=== PATIENT | female | born 1995 | race Caucasian/White ===

== ENCOUNTER 2024-08-15 15:10 | Observation (INO) ==
[2024-08-15 16:46] LABS: Basophils # (auto) 0.07 K/uL (0.00-0.20); Basophils % (auto) 0.8 %; Eosinophils % (auto) 1.1 %; Hematocrit (blood only) 37.7 % (37.0-47.0); Hemoglobin 12.5 g/dl (12.0-16.0); Immature Granulocytes # (auto) 0.02 K/uL (0.01-0.20); Immature Granulocytes % (auto) 0.2 %; Lymphocytes # (auto) 1.96 K/uL (1.20-3.40); Lymphocytes % (auto) 22.5 %; Mean Corpuscular Hemoglobin 30.4 pg (25.0-34.0); Mean Corpuscular Hgb Conc 33.2 g/dL (32.0-36.0); Mean Corpuscular Volume 91.7 fL (80.0-100.0); Mean Platelet Volume 10.5 fL (9.4-12.4); Monocytes # (auto) 0.56 K/uL (0.11-0.59); Monocytes % (auto) 6.4 %; Neutrophils # (auto) 5.99 K/uL (1.40-6.50); Platelet Count 240 K/uL (130-400); RDW Coefficient of Variation 12.3 % (11.5-14.5); RDW Standard Deviation 41.3 fL (36.4-46.3); Red Blood Count 4.11 M/uL (4.20-5.40)
[2024-08-15 17:04] LABS: Albumin Globulin Ratio 1.5 (0.9-2); BUN Creatinine Ratio 28.8 (10-20); Bilirubin,Total 0.2 mg/dl (0.2-1.0); Calcium 9.7 mg/dl (8.6-10.3); Creatinine Clr Calc Pharmacy 69.7 ml/min; Globulin 2.8 gm/dl (2.5-4.0); Potassium 3.7 mmol/L (3.5-5.1); Total Protein 7.1 gm/dl (6.0-8.3)
--- NOTE | 2024-08-15 17:38 | Emergency Department Note ---
Impression & Plan UTI (urinary tract infection) ED Provider Note CHIEF COMPLAINT: UTI symptoms HISTORY OF PRESENTING ILLNESS: Patient is a 28-year-old female presents to the emergency department today with her mother for evaluation of pain pain and UTI symptoms. The patient does have a history of cerebral palsy. She is she is nonverbal, nonambulatory, blindness, and hearing impaired. The patient was seen a few weeks ago here for a UTI and started on Keflex. Once the culture returned mother felt that she was not improving and brought her back to the emergency department the same day. She was then given a dose of ertapenem 1000 mg IV and sent home with Macrobid. She did complete the course and did have improvement but then started to get worse again. Mother reports that she appears to be in pain when straightening out her legs but it is difficult to understand where the pain is coming from due to the nonverbal status. No reported fevers, nausea, vomiting. She does have a history of sepsis back in December from a UTI source. REVIEW OF SYSTEMS: See HPI for pertinent positives and pertinent negatives. ALLERGIES: No known allergies MEDICATIONS: See below PAST MEDICAL HISTORY: See below PHYSICAL EXAM: VITALS: Vitals are noted on the nurse's note and reviewed by myself. GENERAL: Non toxic, in no acute distress, non-diaphoretic. Is very antsy and yelling which mother and grandmother report is not normal for her. SKIN: Capillary refill <2 sec. NECK: Supple without increased pain on palpation HEART: Regular rate and rhythm without murmurs gallops or rubs. LUNGS: Clear to auscultation bilaterally without wheezes, rales or rhonchi. No retractions or accessory muscle use. ABDOMEN: Positive bowel sounds x 4. Normal tympanic percussion. Soft, nontender to palpation. No masses or hepatosplenomegaly. No focal RLQ or LLQ tenderness. Note: Is difficult to assess due to nonverbal status. MUSCULOSKELETAL: Difficult to assess, contractures are noted, patient is stiff, and nonambulatory. NEURO: Patient was alert. Neurologic exam is difficult due to the cerebral palsy history. DIFFERENTIAL DIAGNOSIS: Differential diagnosis includes appendicitis, diverticulitis, bowel obstruction, inflammatory bowel disease, renal colic, PUD, biliary pathology, pancreatitis, mesenteric ischemia, aortic pathology, infection, genitourinary, UTI, perforated viscus, among others. ED COURSE AND MEDICAL DECISION MAKING: HISTORY FROM INDEPENDENT HISTORIAN: History was provided by the the patient's mother and grandmother. MONITOR: Continuous cardiac monitor technician: Order was placed for continuous cardiac monitor technician. Patient was placed on the cardiac monitor technician and continuous pulse ox. Patient was noted to be in normal sinus rhythm at an initial rate of 94 bpm per my interpretation. INTERPRETATION OF LABS: I interpreted the labs with full lab results as below in the lab section of this note. Laboratory results pertinent to the emergent complaint are discussed in the MDM section below. The patient was advised to follow up with their PCP and/or specialist(s) for further outpatient monitoring and management of any abnormal results. EXTERNAL RECORDS REVIEWED: Patient's previous hospital stay and emergency records CHRONIC MEDICAL/SOCIAL CONDITIONS AFFECTING CARE: Cerebral palsy, nonverbal, nonambulatory, blind, and hearing impaired. ESCALATION OF CARE CONSIDERED: I considered admission on this patient due to failure of p.o. antibiotics. CONSULTATIONS: I had a meaningful discussion about this patient with Dr. Gambino who agrees with my assessment and the treatment plan. I consulted with the pharmacist who is recommending IV antibiotics with either Zosyn or for concern for ESBL a carbapenem would be best. I then consulted with Dr. Huntley who accepts the patient for admission. SUMMARY: I examined the patient for complaints of abdominal pain. A physical exam and history were performed. Nursing notes, EMR, and medication list were personally reviewed. Due to the patient being nonverbal mother provided most of the history. Patient was difficult to assess due to the cerebral palsy and the nonverbal status. I discussed the CT scan of the abdomen and pelvis with the mother who originally agreed. When she was straight cathed for urine the patient's mother was certain that it was UTI and then refused the CT scan. She was educated on the benefits and the risks of the CT scan. The patients lab work did show no leukocytosis, thrombocytopnea, or anemia. Sodium level was 147 and chloride 114. Urinalysis did show trace amount of leukocytes with white blood cells present. Due to the failure of outpatient antibiotics, and the history of sepsis with UTI source I did consult with Dr. Huntley who accepts the patient for admission. I also spoke with the pharmacist who is recommending IV antibiotics of either Zosyn for the broad coverage or carbapenem if her concern for the ESBL still present. I did relay this information to Dr. Huntley. I then spoke with the patient's mother and updated her on the plan of care. She had no further questions or concerns. The patient was admitted to the hospitalist services at this time. The patient is to have close outpatient follow-up with a recheck of their symptoms. To return to the ER sooner for any significantly changing or worsening symptoms. The patient was educated on the treatment plan and the discharge instructions. The patient was discharged home in stable condition and verbalized understanding of all discharge instructions and treatment plan. DIAGNOSIS: Urinary tract infection TREATMENT PLAN/DISCHARGE INSTRUCTIONS: Admit to hospitalist services. Past Med/Surg History Problem List (Updated 08/16/24 @ 06:10 by Jermain Grace MD) Urinary tract infection due to extended-spectrum beta lactamase (ESBL) producing Escherichia coli Muscle spasticity UTI (urinary tract infection) (Acute) Medical History HTN (hypertension) Hyperlipemia Epilepsy Quadriplegia Cerebral palsy Blindness No pertinent family history Surgical History No pertinent past surgical history Family History Other No pertinent family history Social History Smoking Status: Never smoker Do You Dip or Chew Tobacco: No; Tobacco Cessation Education Requested by Patient: No Hx Alcohol Use: No Hx Substance Use: No Preferred Language: Iraqi Communication Ability: Unable Communication Ability Comment: pt nonverbal Visual Impairment: Blindness Pullman Conductor Required: No Beliefs That Will Affect Care: None Current Living Situation: Parent current occupational status: disabled Other Information That Helps Us Care for You: No Feels Safe at Home: Yes Assistive Devices: Wheelchair Allergies Allergies Allergy/AdvReac Type Severity Reaction Status Date / Time No Known Allergies Allergy Unknown Unverified 09/27/18 13:26 Home Meds Home Medications Medication Instructions Recorded Confirmed citalopram 40 mg tablet 40 mg PO HS 09/27/18 08/15/24 lamotrigine 25 mg chewable 50 mg PO BID 09/27/18 08/15/24 dispersible tablet melatonin 5 mg tablet 5 mg PO HS 09/27/18 08/15/24 polyethylene glycol 3350 17 17 g PO QAM 09/27/18 08/15/24 gram/dose oral powder simvastatin 10 mg tablet 10 mg PO QAM 09/27/18 08/15/24 albuterol sulfate 90 mcg/actuation 2 inh inhalation Q6H PRN sob 05/18/24 08/15/24 breath activated powder inhaler cholecalciferol (vitamin D3) 1,250 50,000 unit PO WK 05/18/24 08/15/24 mcg (50,000 unit) capsule quetiapine 200 mg tablet 200 mg PO BID 05/26/24 08/15/24 Results & Data (ED) Vital Signs Vital Signs - 24 hr 08/15/24 15:19 08/15/24 16:05 08/15/24 17:11 Temperature 36.2 C L Temperature Source Temporal Artery Scan Pulse Rate 98 H 99 H Pulse Rate [Left] 93 H Respiratory Rate 20 20 20 Blood Pressure 106/68 Blood Pressure [Left Arm] 89/71 L Blood Pressure Mean 80 Blood Pressure Mean [Left Arm] 77 Pulse Oximetry 100 98 95 Oxygen Delivery Method Room Air Room Air Sepsis Recent Fever Within 48 Hours No Sepsis New/Unexplained Change in Mental Status N/A Sepsis Action Taken by Nursing No Action Required 08/15/24 17:19 08/15/24 19:00 Temperature Temperature Source Pulse Rate 102 H Pulse Rate [Left] 103 H Respiratory Rate 20 Blood Pressure Blood Pressure [Left Arm] 116/92 Blood Pressure Mean Blood Pressure Mean [Left Arm] 100 Pulse Oximetry 94 Oxygen Delivery Method Room Air Sepsis Recent Fever Within 48 Hours Sepsis New/Unexplained Change in Mental Status Sepsis Action Taken by Nursing Laboratory Data 08/15/24 16:23 08/15/24 16:23 Lab Results 08/15/24 08/15/24 Range/Units 16:23 18:03 WBC 8.70 (4.8-10.8) K/ul RBC 4.11 L (4.20-5.40) M/uL Hgb 12.5 (12.0-16.0) g/dl Hct 37.7 (37.0-47.0) % MCV 91.7 (80.0-100.0) fL MCH 30.4 (25.0-34.0) pg MCHC 33.2 (32.0-36.0) g/dL RDW Std Deviation 41.3 (36.4-46.3) fL RDW Coeff of Jeri 12.3 (11.5-14.5) % Plt Count 240 (130-400) K/uL MPV 10.5 (9.4-12.4) fL Immature Gran % (Auto) 0.2 % Neut % (Auto) 69.0 % Lymph % (Auto) 22.5 % [place] % (Auto) 6.4 % Eos % (Auto) 1.1 % Baso % (Auto) 0.8 % Neut # (Auto) 5.99 (1.40-6.50) K/uL Lymph # (Auto) 1.96 (1.20-3.40) K/uL [place] # (Auto) 0.56 (0.11-0.59) K/uL Eos # (Auto) 0.10 (0.00-0.50) K/uL Baso # (Auto) 0.07 (0.00-0.20) K/uL Immature Gran # (Auto) 0.02 (0.01-0.20) K/uL Sodium 147 H (136-145) mmol/L Potassium 3.7 (3.5-5.1) mmol/L Chloride 114 H (98-107) mmol/L Carbon Dioxide 26 (21-32) mmol/L Anion Gap 7 (3-11) BUN 21 (6-23) mg/dl Creatinine 0.73 (0.6-1.2) mg/dl Est Cr Clr Drug Dosing 69.7 ml/min eGFR 116.24 BUN/Creatinine Ratio 28.8 H (10-20) Glucose 93 (70-99(Fasting)) mg/dl Calcium 9.7 (8.6-10.3) mg/dl Total Bilirubin 0.2 (0.2-1.0) mg/dl AST 17 (13-39) U/L ALT 31 (7-52) U/L Alkaline Phosphatase 76 (34-104) U/L Total Protein 7.1 (6.0-8.3) gm/dl Albumin 4.3 (3.4-5.0) gm/dl Globulin 2.8 (2.5-4.0) gm/dl Albumin/Globulin Ratio 1.5 (0.9-2) Lipase 26 (11-82) U/L Urine Color Yellow Urine Appearance Turbid A (Clear) Urine pH 6.0 (4.5-7.5) Ur Specific [place] >= 1.030 (1.000-1.030) Urine Protein 3+ H (Negative) Urine Glucose (UA) Negative (Negative) Urine Ketones Negative (Negative) Urine Blood Trace-intact H (Negative) Urine Nitrite Negative (Negative) Urine Bilirubin Negative (Negative) Urine Urobilinogen Negative (Negative) Ur Leukocyte Esterase Trace H (Negative) Urine RBC 3-5 H (0-2) /hpf Urine WBC 11-20 H (0-5) /hpf Ur Epithelial Cells >20 H (0-2) /hpf Calcium Oxalate Crystal Present A (None Prsent) Amorphous Sediment Present A (None Prsent) Urine Bacteria 4+ H (None Seen) Urine Mucus Present A (None Prsent) Urine Comment Administered Medications Citalopram Hydrobromide (Citalopram 40 Mg Tab) 40 mg PO HS PENDING SALE TO [facility] Stop: 09/14/24 21:35 Last Admin: 08/15/24 22:26 Dose: 40 mg Documented By: [id number] Heparin Sodium (Porcine) (Heparin Sod 5,000 Unit/0.5 Ml Vial) 5,000 units SQ Q12 JORDAN Stop: 09/14/24 21:35 Last Admin: 08/15/24 22:22 Dose: 5,000 units Documented By: [id number] Ertapenem (Invanz 1000mg) 1,000 mg in 10 mls @ 2 mls/min IV Q24H JORDAN Stop: 08/25/24 21:59 Last Admin: 08/15/24 22:23 Dose: 2 mls/min Documented By: [id number] Lamotrigine (Lamotrigine 25 Mg Tab) 50 mg PO BID JORDAN Stop: 09/14/24 21:35 Last Admin: 08/15/24 22:25 Dose: 50 mg Documented By: [id number] Melatonin (Melatonin 3 Mg Tab) 4.5 mg PO HS PENDING SALE TO [facility] Stop: 09/14/24 21:35 Last Admin: 08/15/24 22:26 Dose: 4.5 mg Documented By: [id number] Quetiapine Fumarate (Quetiapine Fumarate 200 Mg Tab) 400 mg PO PM JORDAN Stop: 09/14/24 22:29 Last Admin: 08/15/24 22:24 Dose: 400 mg Documented By: [id number] Discontinued Medications Dextrose/Sodium Chloride (D5w And 1/2nss) 1,000 mls @ 80 mls/hr IV .[id number] JORDAN Stop: 08/16/24 10:05 Last Admin: 08/15/24 22:26 Dose: 80 mls/hr Documented By: [id number] Lorazepam (Lorazepam 0.5 Mg Tab) 0.5 mg SL NOW STA Stop: 08/15/24 20:22 Last Admin: 08/15/24 20:26 Dose: 0.5 mg Documented By: [id number] Lorazepam (Lorazepam 2 Mg/1 Ml Vial) 0.25 mg IV NOW STA Stop: 08/15/24 23:21 Last Admin: 08/15/24 23:31 Dose: 0.25 mg Documented By: [id number] Discharge Plan Visit Data Chief Complaint: Urinary Symptoms Stated Complaint: UTI ED Provider: Bernabe Gambino ED Midlevel Provider: Fadia Ames Discharge Problem: UTI (urinary tract infection) Patient Disposition: Admitted As Inpatient Condition: Good Discharge Instructions Interventions: ED Discharge Assessment Last Done: 08/15/24 21:04 Discharge Problem: UTI (urinary tract infection) Qualifiers: Urinary tract infection type: acute cystitis Hematuria presence: without hematuria Qualified Code(s): N30.00 - Acute cystitis without hematuria
[2024-08-15 18:17] LABS: Appearance Urine Turbid (Clear); Bilirubin Urine Negative (Negative); Blood Urine Trace-intact (Negative); Color Urine Yellow; Glucose Urine UA Negative (Negative); Ketones Urine Negative (Negative); Leukocyte Esterase Urine Trace (Negative); Nitrite Urine Negative (Negative); Protein Urine 3+ (Negative); Specific Gravity Urine >= 1.030 (1.000-1.030); Urobilinogen Urine Negative (Negative)
[2024-08-15 18:30] LABS: Epithelial Cell Urine >20 /hpf (0-2)
[2024-08-15 18:31] LABS: Amorphous Sediment Urine Present (None Prsent); Bacteria Urine 4+ (None Seen)
[2024-08-15 18:33] LABS: Calcium Oxalate Crystals Urine Present (None Prsent)
[2024-08-15 18:36] LABS: Mucus Urine Present (None Prsent)
--- NOTE | 2024-08-15 19:42 | History & Physical Report ---
Date of Service August 15, 2024 Assessment & Plan (1) Urinary tract infection due to extended-spectrum beta lactamase (ESBL) producing Escherichia coli: Plan: 28-year-old female with past history of cerebral palsy, nonverbal, nonambulatory, blindness and some hearing impairment and history of UTIs and sepsis in the past brought in for UTI. Patient was in the ER on July 29, 2024 as patient was crying and holding her belly and urine was was dark and malodorous. Patient was discharged on Keflex but cultures came back as ESBL E. coli. Patient was also not doing well at home ,patient was called back to the the ER on 07/31/2024 as cultures were growing ESBL. In the ER she did okay and was discharged on Macrobid. And patient seems to having pain and UTI symptoms and mother brought her back to the hospital today. Currently patient seems to be pleasant which is the baseline as per mother. No nausea or vomiting. Patient is constipated and mother gives enema every few days. Micturating okay. Appetite okay. Afebrile. Hemodynamics okay. UTI with ESBL E. coli Started on Invanz Gentle fluids Follow cultures History of cerebral palsy Nonverbal Nonambulatory Continue citalopram, lamotrigine and Seroquel Constipation Bowel regimen DVT prophylaxis Heparin subcu Disposition Med/telemetry Full code. History of Present Illness Chief Complaint: acute UTI Primary Care Provider: HAYLIE Gomez 28-year-old female with past history of cerebral palsy, nonverbal, nonambulat ory, blindness and some hearing impairment and history of UTIs and sepsis in the past brought in for UTI. Patient was in the ER on July 29, 2024 as patient was crying and holding her belly and urine was was dark and malodorous. Patient was discharged on Keflex but cultures came back as ESBL E. coli. Patient was also not doing well at home ,patient was called back to the the ER on 07/31/2024 as c ultures were growing ESBL. In the ER she did okay and was discharged on Macrobid. And patient seems to having pain and UTI symptoms and mother brought her back to the hospital today. Currently patient seems to be pleasant which is the baseline as per mother. No nausea or vomiting. Patient is constipated and mother gives enema every few days. Micturating okay. Appetite okay. Afebrile. Hemodynamics okay. Past medical spewed as mentioned above Past surgical history. 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 Living with her mother. Family history. Mother denies any family history. Allergies Allergy/AdvReac Type Severity Reaction Status Date / Time No Known Allergies Allergy Unknown Unverified 09/27/18 13:26 Home Medications Medication Instructions Recorded Confirmed Type citalopram 40 mg tablet 40 mg PO HS 09/27/18 08/15/24 History lamotrigine 25 mg chewable 50 mg PO BID 09/27/18 08/15/24 History dispersible tablet melatonin 5 mg tablet 5 mg PO HS 09/27/18 08/15/24 History polyethylene glycol 3350 17 17 g PO QAM 09/27/18 08/15/24 History gram/dose oral powder simvastatin 10 mg tablet 10 mg PO QAM 09/27/18 08/15/24 History albuterol sulfate 90 mcg/actuation 2 inh inhalation Q6H PRN sob 05/18/24 08/15/24 History breath activated powder inhaler cholecalciferol (vitamin D3) 1,250 50,000 unit PO WK 05/18/24 08/15/24 History mcg (50,000 unit) capsule quetiapine 200 mg tablet 200 mg PO BID 05/26/24 08/15/24 History Past Med/Surg History Problem List (Updated 08/16/24 @ 06:10 by Jermain Grace MD) Urinary tract infection due to extended-spectrum beta lactamase (ESBL) producing Escherichia coli Muscle spasticity UTI (urinary tract infection) (Acute) Medical History HTN (hypertension) Hyperlipemia Epilepsy Quadriplegia Cerebral palsy Blindness No pertinent family history Surgical History No pertinent past surgical history Family History Other No pertinent family history Social History Smoking Status: Never smoker Do You Dip or Chew Tobacco: No; Tobacco Cessation Education Requested by Patient: No Hx Alcohol Use: No Hx Substance Use: No Preferred Language: Icelandic Communication Ability: Unable Communication Ability Comment: pt nonverbal Visual Impairment: Blindness Manager Academic Required: No Beliefs That Will Affect Care: None Current Living Situation: Parent current occupational status: disabled Other Information That Helps Us Care for You: No Feels Safe at Home: Yes Assistive Devices: Wheelchair Review of Systems Review of Systems: Unobtainable due to cognitive status Physical Exam Physical Exam: General- Not in distress. Head- atraumatic ENT- oropharynx dry Neck- supple, no JVD. Lungs- clear to auscultation no wheezing or crackles Heart- regular rhythm; no murmur, no gallop. Abdomen- normal bowel sounds, soft, nontender, no distension Extremities- no pretibial edema, no erythema seen. Neuro-Nonverbal, moving extremities Results & Data Results & Data Vital Signs (Past 12 Hours) Vital Signs Temp Pulse Pulse Resp BP BP Pulse Ox 08/15/24 19:00 103 H 20 116/92 94 08/15/24 17:19 102 H 08/15/24 17:11 93 H 20 89/71 L 95 08/15/24 16:05 99 H 20 98 08/15/24 15:19 36.2 C L 98 H 20 106/68 100 O2 Del Method 08/15/24 19:00 Room Air 08/15/24 17:19 08/15/24 17:11 Room Air 08/15/24 16:05 Room Air 08/15/24 15:19 Diagnostic Findings Laboratory Results WBC 8.70 K/ul (4.8-10.8) 08/15/24 16:23 RBC 4.11 M/uL (4.20-5.40) L 08/15/24 16:23 Hgb 12.5 g/dl (12.0-16.0) 08/15/24 16:23 Hct 37.7 % (37.0-47.0) 08/15/24 16:23 MCV 91.7 fL (80.0-100.0) 08/15/24 16:23 MCH 30.4 pg (25.0-34.0) 08/15/24 16:23 MCHC 33.2 g/dL (32.0-36.0) 08/15/24 16:23 RDW Std Deviation 41.3 fL (36.4-46.3) 08/15/24 16:23 RDW Coeff of Jeri 12.3 % (11.5-14.5) 08/15/24 16:23 Plt Count 240 K/uL (130-400) 08/15/24 16:23 MPV 10.5 fL (9.4-12.4) 08/15/24 16:23 Immature Gran % (Auto) 0.2 % 08/15/24 16:23 Neut % (Auto) 69.0 % 08/15/24 16:23 Lymph % (Auto) 22.5 % 08/15/24 16:23 [place] % (Auto) 6.4 % 08/15/24 16:23 Eos % (Auto) 1.1 % 08/15/24 16:23 Baso % (Auto) 0.8 % 08/15/24 16:23 Neut # (Auto) 5.99 K/uL (1.40-6.50) 08/15/24 16:23 Lymph # (Auto) 1.96 K/uL (1.20-3.40) 08/15/24 16:23 [place] # (Auto) 0.56 K/uL (0.11-0.59) 08/15/24 16:23 Eos # (Auto) 0.10 K/uL (0.00-0.50) 08/15/24 16:23 Baso # (Auto) 0.07 K/uL (0.00-0.20) 08/15/24 16:23 Immature Gran # (Auto) 0.02 K/uL (0.01-0.20) 08/15/24 16:23 Sodium 147 mmol/L (136-145) H 08/15/24 16:23 Potassium 3.7 mmol/L (3.5-5.1) 08/15/24 16:23 Chloride 114 mmol/L (98-107) H 08/15/24 16:23 Carbon Dioxide 26 mmol/L (21-32) 08/15/24 16:23 Anion Gap 7 (3-11) 08/15/24 16:23 BUN 21 mg/dl (6-23) 08/15/24 16:23 Creatinine 0.73 mg/dl (0.6-1.2) 08/15/24 16:23 Est Cr Clr Drug Dosing 69.7 ml/min 08/15/24 16:23 eGFR 116.24 08/15/24 16:23 BUN/Creatinine Ratio 28.8 (10-20) H 08/15/24 16:23 Glucose 93 mg/dl (70-99(Fasting)) 08/15/24 16:23 Calcium 9.7 mg/dl (8.6-10.3) 08/15/24 16:23 Total Bilirubin 0.2 mg/dl (0.2-1.0) 08/15/24 16:23 AST 17 U/L (13-39) 08/15/24 16:23 ALT 31 U/L (7-52) 08/15/24 16:23 Alkaline Phosphatase 76 U/L (34-104) 08/15/24 16:23 Total Protein 7.1 gm/dl (6.0-8.3) 08/15/24 16:23 Albumin 4.3 gm/dl (3.4-5.0) 08/15/24 16:23 Globulin 2.8 gm/dl (2.5-4.0) 08/15/24 16:23 Albumin/Globulin Ratio 1.5 (0.9-2) 08/15/24 16:23 Lipase 26 U/L (11-82) 08/15/24 16:23 Urine Color Yellow 08/15/24 18:03 Urine Appearance Turbid (Clear) A 08/15/24 18:03 Urine pH 6.0 (4.5-7.5) 08/15/24 18:03 Ur Specific [place] >= 1.030 (1.000-1.030) 08/15/24 18:03 Urine Protein 3+ (Negative) H 08/15/24 18:03 Urine Glucose (UA) Negative (Negative) 08/15/24 18:03 Urine Ketones Negative (Negative) 08/15/24 18:03 Urine Blood Trace-intact (Negative) H 08/15/24 18:03 Urine Nitrite Negative (Negative) 08/15/24 18:03 Urine Bilirubin Negative (Negative) 08/15/24 18:03 Urine Urobilinogen Negative (Negative) 08/15/24 18:03 Ur Leukocyte Esterase Trace (Negative) H 08/15/24 18:03 Urine RBC 3-5 /hpf (0-2) H 08/15/24 18:03 Urine WBC 11-20 /hpf (0-5) H 08/15/24 18:03 Ur Epithelial Cells >20 /hpf (0-2) H 08/15/24 18:03 Calcium Oxalate Crystal Present (None Prsent) A 08/15/24 18:03 Amorphous Sediment Present (None Prsent) A 08/15/24 18:03 Urine Bacteria 4+ (None Seen) H 08/15/24 18:03 Urine Mucus Present (None Prsent) A 08/15/24 18:03 Urine Comment 08/15/24 18:03 Code Status & VTE Plan VTE Prophylaxis Plan VTE Prophylaxis will be ordered: Yes
[2024-08-15] MEDS: LORazepam 0.5 MG TAB SL STA (20:26)
[2024-08-15] MEDS ORDERED: POLYETHYLENE (MIRALAX) 17 GM PACK PO PRN (21:36)
[2024-08-15] MEDS ORDERED: SOD PHOSPHATE/SOD BIPHOSPHATE ENEMA 132 ML BTL PR PRN (21:36)
[2024-08-15] MEDS ORDERED: QUEtiapine FUMARATE 200 MG TAB PO SCH (21:36)
[2024-08-15] MEDS ORDERED: ALBUTEROL HFA 8 GM INHALER INH PRN (21:53)
[2024-08-15] MEDS: HEPARIN SOD 5,000 UNIT/0.5 ML VIAL SQ SCH (22:22)
[2024-08-15] MEDS: ERTAPENEM 1000MG 1,000 MG/10 ML SYR IV SCH (22:23)
[2024-08-15] MEDS: QUEtiapine FUMARATE 200 MG TAB PO SCH (22:24)
[2024-08-15] MEDS: lamoTRIgine 25 MG TAB PO SCH (22:25)
[2024-08-15] MEDS: CITALOPRAM 40 MG TAB PO SCH (22:26)
[2024-08-15] MEDS: MELATONIN 3 MG TAB PO SCH (22:26)
[2024-08-15] MEDS: D5W AND 1/2NSS 1,000 ML IV SCH (22:26)
[2024-08-15] MEDS: LORazepam 2 MG/1 ML VIAL IV STA (23:31)
--- NOTE | 2024-08-16 08:17 | Hospitalist Progress Note ---
Date of Service August 16, 2024 Assessment & Plan (1) Urinary tract infection due to extended-spectrum beta lactamase (ESBL) producing Escherichia coli: Plan: 28-year-old female with past history of cerebral palsy, nonverbal, nonambulatory, blindness and some hearing impairment and history of UTIs and sepsis in the past brought in for UTI. Patient was in the ER on July 29, 2024 as patient was crying and holding her belly and urine was was dark and malodorous. Patient was discharged on Keflex but cultures came back as ESBL E. coli. Patient was also not doing well at home ,patient was called back to the the ER on 07/31/2024 as cultures were growing ESBL. In the ER she did okay and was discharged on Macrobid. And patient seems to having pain and UTI symptoms and mother brought her back to the hospital today. Currently patient seems to be pleasant which is the baseline as per mother. No nausea or vomiting. Patient is constipated and mother gives enema every few days. Micturating okay. Appetite okay. Afebrile. Hemodynamics okay. UTI with ESBL E. coli Started on Invanz Gentle fluids Follow cultures History of cerebral palsy Nonverbal Nonambulatory Continue citalopram, lamotrigine and Seroquel Constipation Bowel regimen DVT prophylaxis Heparin subcu Disposition Med/telemetry Full code. Admission and Anticipated Discharge Date Admission Date: August 15, 2024 Subjective Pt seen in follow up of ESBL UTI, hx of CP failed outpt treatment hx of constipation Currently lying in bed in NAD, pt's mother present at the bedside Pt ate breakfast , eggs and banana Currently resting , not opening eyes Per mom, pt was anxious / agitated earlier, received ativan Review of Systems Review of Systems: All systems reviewed & are unremarkable except as noted in Subjective Physical Exam Physical Exam: General- young F Not in distress. Head- atraumatic Neck- supple, no JVD. Lungs- clear to auscultation no wheezing or crackles Heart- regular rhythm; no murmur, no gallop. Abdomen- normal bowel sounds, soft, nontender, no distension Extremities- no pretibial edema, no erythema seen. Neuro-Nonverbal, moving extremities Results & Data Results & Data Vital Signs (Past 12 Hours) Vital Signs Pulse Pulse Resp BP Pulse Ox O2 Del Method 08/15/24 22:40 107 H 16 112/73 93 Room Air 08/15/24 22:11 122 H 08/15/24 21:00 91 H 22 137/82 92 08/15/24 20:52 101 H Laboratory Results 08/15/24 08/15/24 Range/Units 18:03 16:23 WBC 8.70 (4.8-10.8) K/ul RBC 4.11 L (4.20-5.40) M/uL Hgb 12.5 (12.0-16.0) g/dl Hct 37.7 (37.0-47.0) % MCV 91.7 (80.0-100.0) fL MCH 30.4 (25.0-34.0) pg MCHC 33.2 (32.0-36.0) g/dL RDW Std Deviation 41.3 (36.4-46.3) fL RDW Coeff of Jeri 12.3 (11.5-14.5) % Plt Count 240 (130-400) K/uL MPV 10.5 (9.4-12.4) fL Immature Gran % (Auto) 0.2 % Neut % (Auto) 69.0 % Lymph % (Auto) 22.5 % [place] % (Auto) 6.4 % Eos % (Auto) 1.1 % Baso % (Auto) 0.8 % Neut # (Auto) 5.99 (1.40-6.50) K/uL Lymph # (Auto) 1.96 (1.20-3.40) K/uL [place] # (Auto) 0.56 (0.11-0.59) K/uL Eos # (Auto) 0.10 (0.00-0.50) K/uL Baso # (Auto) 0.07 (0.00-0.20) K/uL Immature Gran # (Auto) 0.02 (0.01-0.20) K/uL Sodium 147 H (136-145) mmol/L Potassium 3.7 (3.5-5.1) mmol/L Chloride 114 H (98-107) mmol/L Carbon Dioxide 26 (21-32) mmol/L Anion Gap 7 (3-11) BUN 21 (6-23) mg/dl Creatinine 0.73 (0.6-1.2) mg/dl Est Cr Clr Drug Dosing 69.7 ml/min eGFR 116.24 BUN/Creatinine Ratio 28.8 H (10-20) Glucose 93 (70-99(Fasting)) mg/dl Calcium 9.7 (8.6-10.3) mg/dl Total Bilirubin 0.2 (0.2-1.0) mg/dl AST 17 (13-39) U/L ALT 31 (7-52) U/L Alkaline Phosphatase 76 (34-104) U/L Total Protein 7.1 (6.0-8.3) gm/dl Albumin 4.3 (3.4-5.0) gm/dl Globulin 2.8 (2.5-4.0) gm/dl Albumin/Globulin Ratio 1.5 (0.9-2) Lipase 26 (11-82) U/L Urine Color Yellow Urine Appearance Turbid A (Clear) Urine pH 6.0 (4.5-7.5) Ur Specific [place] >= 1.030 (1.000-1.030) Urine Protein 3+ H (Negative) Urine Glucose (UA) Negative (Negative) Urine Ketones Negative (Negative) Urine Blood Trace-intact H (Negative) Urine Nitrite Negative (Negative) Urine Bilirubin Negative (Negative) Urine Urobilinogen Negative (Negative) Ur Leukocyte Esterase Trace H (Negative) Urine RBC 3-5 H (0-2) /hpf Urine WBC 11-20 H (0-5) /hpf Ur Epithelial Cells >20 H (0-2) /hpf Calcium Oxalate Crystal Present A (None Prsent) Amorphous Sediment Present A (None Prsent) Urine Bacteria 4+ H (None Seen) Urine Mucus Present A (None Prsent) Urine Comment Medications Administered Current Inpatient Medications Albuterol (Albuterol Hfa 8 Gm Inhaler) 2 puffs INH Q6H PRN PRN Reason: sob Stop: 09/14/24 21:52 Citalopram Hydrobromide (Citalopram 40 Mg Tab) 40 mg PO HS JORDAN Stop: 09/14/24 21:35 Last Admin: 08/15/24 22:26 Dose: 40 mg Heparin Sodium (Porcine) (Heparin Sod 5,000 Unit/0.5 Ml Vial) 5,000 units SQ Q12 JORDAN Stop: 09/14/24 21:35 Last Admin: 08/15/24 22:22 Dose: 5,000 units Dextrose/Sodium Chloride (D5w And 1/2nss) 1,000 mls @ 80 mls/hr IV .[id number] JORDAN Stop: 08/16/24 10:05 Last Admin: 08/15/24 22:26 Dose: 80 mls/hr Ertapenem (Invanz 1000mg) 1,000 mg in 10 mls @ 2 mls/min IV Q24H JORDAN Stop: 08/25/24 21:59 Last Admin: 08/15/24 22:23 Dose: 2 mls/min Lamotrigine (Lamotrigine 25 Mg Tab) 50 mg PO BID JORDAN Stop: 09/14/24 21:35 Last Admin: 08/15/24 22:25 Dose: 50 mg Melatonin (Melatonin 3 Mg Tab) 4.5 mg PO HS [facility] Stop: 09/14/24 21:35 Last Admin: 08/15/24 22:26 Dose: 4.5 mg Polyethylene Glycol (Polyethylene (Miralax) 17 Gm Pack) 17 gm PO DAILY PRN PRN Reason: Constipation Stop: 09/14/24 21:35 Polyethylene Glycol (Polyethylene (Miralax) 17 Gm Pack) 17 gm PO QAM [facility] Stop: 09/15/24 08:59 Quetiapine Fumarate (Quetiapine Fumarate 200 Mg Tab) 200 mg PO QAM [facility] Stop: 09/15/24 08:59 Quetiapine Fumarate (Quetiapine Fumarate 200 Mg Tab) 400 mg PO PM [facility] Stop: 09/14/24 22:29 Last Admin: 08/15/24 22:24 Dose: 400 mg Simvastatin (Simvastatin 10 Mg Tab) 10 mg PO QAM [facility] Stop: 09/15/24 08:59 Sodium Biphosphate/Sodium Phosphate (Sod Phosphate/Sod Biphosphate Enema 132 Ml Btl) 132 ml AL DAILY PRN PRN Reason: Constipation Stop: 09/14/24 21:35
[2024-08-16] MEDS: POLYETHYLENE (MIRALAX) 17 GM PACK PO SCH (10:22)
[2024-08-16] MEDS: SIMVASTATIN 10 MG TAB PO SCH (10:23)
[2024-08-16] MEDS: QUEtiapine FUMARATE 200 MG TAB PO SCH (10:23)
[2024-08-16] MEDS: SODIUM CHLORIDE 0.9% 500 ML IV SCH (13:07)
[2024-08-16] MEDS ORDERED: ERTAPENEM 1000MG 1,000 MG/10 ML SYR IV SCH (19:30)
[2024-08-17] MEDS: LORazepam 2 MG/1 ML VIAL IV STA (06:38)
--- NOTE | 2024-08-17 07:58 | Hospitalist Progress Note ---
Date of Service August 17, 2024 Assessment & Plan (1) Urinary tract infection due to extended-spectrum beta lactamase (ESBL) producing Escherichia coli: Plan: 28-year-old female with past history of cerebral palsy, nonverbal, nonambulatory, blindness and some hearing impairment and history of UTIs and sepsis in the past brought in for UTI. Patient was in the ER on July 29, 2024 as patient was crying and holding her belly and urine was was dark and malodorous. Patient was discharged on Keflex but cultures came back as ESBL E. coli. Patient was also not doing well at home ,patient was called back to the the ER on 07/31/2024 as cultures were growing ESBL. In the ER she did okay and was discharged on Macrobid. And patient seems to having pain and UTI symptoms and mother brought her back to the hospital today. Currently patient seems to be pleasant which is the baseline as per mother. No nausea or vomiting. Patient is constipated and mother gives enema every few days. Micturating okay. Appetite okay. Afebrile. Hemodynamics okay. UTI with ESBL E. coli - per cultx 07/29/24 Started on Invanz Gentle fluids Follow repeat cultures History of cerebral palsy Nonverbal Nonambulatory Continue citalopram, lamotrigine and Seroquel Constipation Bowel regimen DVT prophylaxis Heparin subcu Disposition Med/telemetry Full code. Admission and Anticipated Discharge Date Admission Date: August 15, 2024 Subjective Pt seen in follow up of hx of recent ESBL UTI, hx of CP hx of constipation Currently lying in bed in [facility], pt's family present at the bedside Pt ate lunch per family In the morning reportedly agitated and medicated, now resting and sleeping Review of Systems Review of Systems: Unobtainable due to cognitive status Physical Exam Physical Exam: General- young F Not in distress. Head- atraumatic Neck- supple, no JVD. Lungs- clear to auscultation no wheezing or crackles Heart- regular rhythm; no murmur, no gallop. Abdomen- normal bowel sounds, soft, nontender, no distension Extremities- no pretibial edema, no erythema seen. Neuro-Nonverbal, moving extremities Results & Data Results & Data Vital Signs (Past 12 Hours) Vital Signs Temp Pulse Pulse Resp BP Pulse Ox Pulse Ox 08/17/24 07:05 78 08/17/24 03:15 36.3 C L 67 18 90/57 L 96 08/16/24 22:20 74 18 123/66 98 08/16/24 22:05 67 08/16/24 21:36 98 O2 Del Method O2 Del Method 08/17/24 07:05 08/17/24 03:15 Room Air 08/16/24 22:20 Room Air 08/16/24 22:05 08/16/24 21:36 Room Air Laboratory Results 08/17/24 Range/Units 07:22 WBC 7.21 (4.8-10.8) K/ul RBC 4.02 L (4.20-5.40) M/uL Hgb 12.3 (12.0-16.0) g/dl Hct 37.2 (37.0-47.0) % MCV 92.5 (80.0-100.0) fL MCH 30.6 (25.0-34.0) pg MCHC 33.1 (32.0-36.0) g/dL RDW Std Deviation 41.4 (36.4-46.3) fL RDW Coeff of Jeri 12.0 (11.5-14.5) % Plt Count 177 (130-400) K/uL MPV 10.2 (9.4-12.4) fL Sodium 143 (136-145) mmol/L Potassium 3.7 (3.5-5.1) mmol/L Chloride 109 H (98-107) mmol/L Carbon Dioxide 29 (21-32) mmol/L Anion Gap 5 (3-11) BUN 7 (6-23) mg/dl Creatinine 0.56 L (0.6-1.2) mg/dl Est Cr Clr Drug Dosing 113.9 ml/min eGFR 129.00 BUN/Creatinine Ratio 12.5 (10-20) Glucose 85 (70-99(Fasting)) mg/dl Calcium 8.9 (8.6-10.3) mg/dl Phosphorus 3.2 (2.5-4.9) mg/dl Magnesium 2.0 (1.7-2.4) mg/dl Medications Administered Current Inpatient Medications Albuterol (Albuterol Hfa 8 Gm Inhaler) 2 puffs INH Q6H PRN PRN Reason: sob Stop: 09/14/24 21:52 Citalopram Hydrobromide (Citalopram 40 Mg Tab) 40 mg PO HS [facility] Stop: 09/14/24 21:35 Last Admin: 08/16/24 21:38 Dose: 40 mg Heparin Sodium (Porcine) (Heparin Sod 5,000 Unit/0.5 Ml Vial) 5,000 units SQ Q12 JORDAN Stop: 09/14/24 21:35 Last Admin: 08/16/24 21:44 Dose: 5,000 units Ertapenem (Invanz 1000mg) 1,000 mg in 10 mls @ 2 mls/min IV Q24H [facility]ORDAN Stop: 08/25/24 21:59 Last Admin: 08/16/24 21:45 Dose: 2 mls/min Lamotrigine (Lamotrigine 25 Mg Tab) 50 mg PO BID [facility]ORD[facility] Stop: 09/14/24 21:35 Last Admin: 08/16/24 21:38 Dose: 50 mg Melatonin (Melatonin 3 Mg Tab) 4.5 mg PO HS [facility] Stop: 09/14/24 21:35 Last Admin: 08/16/24 21:38 Dose: 4.5 mg Polyethylene Glycol (Polyethylene (Miralax) 17 Gm Pack) 17 gm PO DAILY PRN PRN Reason: Constipation Stop: 09/14/24 21:35 Polyethylene Glycol (Polyethylene (Miralax) 17 Gm Pack) 17 gm PO QAM [facility] Stop: 09/15/24 08:59 Last Admin: 08/16/24 10:22 Dose: Not Given Quetiapine Fumarate (Quetiapine Fumarate 200 Mg Tab) 200 mg PO QAM [facility] Stop: 09/15/24 08:59 Last Admin: 08/16/24 10:23 Dose: 200 mg Quetiapine Fumarate (Quetiapine Fumarate 200 Mg Tab) 400 mg PO PM [facility] Stop: 09/14/24 22:29 Last Admin: 08/16/24 21:38 Dose: 400 mg Simvastatin (Simvastatin 10 Mg Tab) 10 mg PO QAM [facility] Stop: 09/15/24 08:59 Last Admin: 08/16/24 10:23 Dose: 10 mg Sodium Biphosphate/Sodium Phosphate (Sod Phosphate/Sod Biphosphate Enema 132 Ml Btl) 132 ml DC DAILY PRN PRN Reason: Constipation Stop: 09/14/24 21:35
[2024-08-17 08:02] LABS: Hematocrit (blood only) 37.2 % (37.0-47.0); Hemoglobin 12.3 g/dl (12.0-16.0); Mean Corpuscular Hemoglobin 30.6 pg (25.0-34.0); Mean Corpuscular Hgb Conc 33.1 g/dL (32.0-36.0); Mean Corpuscular Volume 92.5 fL (80.0-100.0); Mean Platelet Volume 10.2 fL (9.4-12.4); Platelet Count 177 K/uL (130-400); RDW Standard Deviation 41.4 fL (36.4-46.3); Red Blood Count 4.02 M/uL (4.20-5.40); White Blood Count 7.21 K/ul (4.8-10.8)
[2024-08-17 08:26] LABS: BUN Creatinine Ratio 12.5 (10-20); Calcium 8.9 mg/dl (8.6-10.3); Creatinine Clr Calc Pharmacy 113.9 ml/min; Phosphorus 3.2 mg/dl (2.5-4.9); Potassium 3.7 mmol/L (3.5-5.1)
[2024-08-17] MEDS: SODIUM CHLORIDE 0.9% 500 ML IV ONE (12:07)
[2024-08-18 02:58] VITALS: RESP 18
[2024-08-18 06:41] LABS: Hematocrit (blood only) 36.7 % (37.0-47.0); Mean Corpuscular Hemoglobin 30.3 pg (25.0-34.0); Mean Corpuscular Hgb Conc 32.7 g/dL (32.0-36.0); Mean Corpuscular Volume 92.7 fL (80.0-100.0); Mean Platelet Volume 10.4 fL (9.4-12.4); Platelet Count 182 K/uL (130-400); RDW Standard Deviation 41.1 fL (36.4-46.3); Red Blood Count 3.96 M/uL (4.20-5.40); White Blood Count 6.29 K/ul (4.8-10.8)
[2024-08-18 07:12] LABS: Anion Gap 5 (3-11); BUN Creatinine Ratio 14.9 (10-20); Blood Urea Nitrogen 13 mg/dl (6-23); Calcium 9.1 mg/dl (8.6-10.3); Carbon Dioxide 29 mmol/L (21-32); Chloride 108 mmol/L (98-107); Creatinine Clr Calc Pharmacy 73.9 ml/min; Glucose 80 mg/dl (70-99(Fasting)); Magnesium 2.2 mg/dl (1.7-2.4); Phosphorus 3.1 mg/dl (2.5-4.9); Sodium 142 mmol/L (136-145)
[2024-08-18 11:43] VITALS: TEMP 97.8; O2SAT 96
--- NOTE | 2024-08-18 14:29 | Discharge Summary ---
Date of Service August 18, 2024 Admission HPI Per Admitting Provider 28-year-old female with past history of cerebral palsy, nonverbal, nonambulatory, blindness and some hearing impairment and history of UTIs and sepsis in the past brought in for UTI. Patient was in the ER on July 29, 2024 as patient was crying and holding her belly and urine was was dark and malodorous. Patient was discharged on Keflex but cultures came back as ESBL E. coli. Patient was also not doing well at home ,patient was called back to the the ER on 07/31/2024 as cultures were growing ESBL. In the ER she did okay and was discharged on Macrobid. And patient seems to having pain and UTI symptoms and mother brought her back to the hospital today. Currently patient seems to be pleasant which is the baseline as per mother. No nausea or vomiting. Patient is constipated and mother gives enema every few days. Micturating okay. Appetite okay. Afebrile. Hemodynamics okay. Past medical spewed as mentioned above Past surgical history. 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 Living with her mother. Family history. Mother denies any family history. Admission Exam Per Admitting Provider General- Not in distress. Head- atraumatic ENT- oropharynx dry Neck- supple, no JVD. Lungs- clear to auscultation no wheezing or crackles Heart- regular rhythm; no murmur, no gallop. Abdomen- normal bowel sounds, soft, nontender, no distension Extremities- no pretibial edema, no erythema seen. Neuro-Nonverbal, moving extremities Principal Diagnosis UTI hx of cerebral palsy Discharge Exam General- young F Not in distress. Head - atraumatic Neck - supple, no JVD. Lungs - clear to auscultation no wheezing or crackles Heart - regular rhythm; no murmur, no gallop. Abdomen - normal bowel sounds, soft, nontender, no distension Extremities - no pretibial edema, no erythema seen. Neuro - Nonverbal, moving extremities Discharge Data Allergies Allergy/AdvReac Type Severity Reaction Status Date / Time No Known Allergies Allergy Unknown Unverified 09/27/18 13:26 Consultations 08/15/24 19:26 ED Decision to Admit Stat Hospital Course (1) Urinary tract infection due to extended-spectrum beta lactamase (ESBL) producing Escherichia coli: 28-year-old female with past history of cerebral palsy, nonverbal, nonambulatory, blindness and some hearing impairment and history of UTIs and sepsis in the past brought in for UTI. Patient was in the ER on July 29, 2024 as patient was crying and holding her belly and urine was was dark and malodorous. Patient was discharged on Keflex but cultures came back as ESBL E. coli. Patient was also not doing well at home ,patient was called back to the the ER on 07/31/2024 as cultures were growing ESBL. In the ER she did okay and was discharged on Macrobid. And patient seems to having pain and UTI symptoms and mother brought her back to the hospital today. Currently patient seems to be pleasant which is the baseline as per mother. No nausea or vomiting. Patient is constipated and mother gives enema every few days. Micturating okay. Appetite okay. Afebrile. Hemodynamics okay. UTI with ESBL E. coli - per cultx 07/29/24 Started on Invanz and received 3 doses while inpt Gentle fluids Current urine cultx posit. for E.coli but not ESBL E.coli as the previous one. Will DC on PO abx Overall pt is much improved per family at the bedside. They feel pt is at her baseline. History of cerebral palsy Nonverbal Nonambulatory Continue citalopram, lamotrigine and Seroquel Constipation Bowel regimen Total Time Total Time Spent Total Time Spent (In Minutes): 40 Discharge Plan Discharge Items Patient Disposition: Home - Self-Care Reason For Visit: ACUTE UTI Discharge Diagnosis: UTI hx of cerebral palsy Condition on Discharge: Good Activity: Per Instructions section Non-emergency contact: Primary Care Provider Call non-emergency contact if: you have any medication questions and your symptoms worsen Follow-up/Referrals: Katerin Mandujano CRNP [Primary Care Provider] - Diet: Heart Healthy Diet Texture: Easy to Chew Liquid Consistency: [place] thick Addtl Attending Provider Instructions: Follow up with primary care doctor within 1-2 weeks. Finish antibiotic course as prescribed. Make sure to stay well hydrated. Pending Studies at Discharge: No Stand-Alone Forms: [employer], Smoking Cessation Medications and DC Order Prescriptions: New cefuroxime axetil 250 mg tablet 250 mg PO BID Qty: 14 0RF Advanced Probiotic 625 mg (10 billion cell) Capsule 1 cap PO DAILY Qty: 7 0RF Continued albuterol sulfate 90 mcg/actuation aerosol powdr breath activated 2 inh inhalation Q6H PRN (Reason: sob) cholecalciferol (vitamin D3) 1,250 mcg (50,000 unit) capsule 50,000 unit PO WK citalopram 40 mg tablet 40 mg PO HS simvastatin 10 mg tablet 10 mg PO QAM lamotrigine 25 mg tablet, chewable dispersible 50 mg PO BID polyethylene glycol 3350 17 gram/dose powder 17 g PO QAM melatonin 5 mg Tablet 5 mg PO HS quetiapine 200 mg tablet 200 mg PO BID Rx Instructions: 1 tablet in AM, 2 tablets in PM Discharge Orders: Discharge Order (Routine); Ordered 08/18/24 Ordered By: Darrius Aceves Admission Data Admit Date/Time: 08/15/24 19:39 Attending Provider: Darrius Aceves Admit Provider: Jermain Grace Primary Care Provider: Katerin Mandujano Other Providers: Jermain Grace
[2024-08-18 14:42] VITALS: BP 101/70
[2024-08-18] MEDS ORDERED: ADVANCED PROBIOTIC 625 MG CAPSULE PO SCH (14:45)
[2024-08-18 14:55] VITALS: PULSE 86
--- NOTE | 2024-08-20 08:20 | Coding Query ---
CODING QUERY To promote full compliance with coding requirements relating to patient care, provider participation is requested in all cases of equity analyst uncertainty. Please assist us with the question(s) below: Coding Question(s): There is documentation in the record of, " History of cerebral palsy Nonverbal Nonambulatory Continue citalopram, lamotrigine and Seroquel", and documentation in the Medical History on ER and H&P of Quadriplegia. Please Specify below, in your clinical opinion, regarding Quadriplegia during this admission: ( ) Quadriplegia during this admission, Please specify further below, in your clinical opinion: ( x ) Quadriplegia Unspecified ( ) Quadriplegia, Specified - Please Specify ( ) No Quadriplegia during this admission Physician's Response(s): Thank you Jyoti Luke Principal Diagnosis: "that condition established after study, to be chiefly responsible for occasioning the admission of the patient to the hospital for care." Co-Existing Principal Diagnosis: "when two or more diagnoses equally meet the criteria for principal diagnosis as determined by the circumstances of admission, diagnostic work up, and/or therapy provided, and the Alphabetic Index, Tabular List, or another coding guideline does not provide sequencing direction, any one of the diagnoses may be sequenced first." "When the physician has documented what appears to be a current diagnosis in the body of the record, but has not included the diagnosis in the final diagnostic statement, the physician should be asked whether the diagnosis should be added." (Source Coding [facility] 2 QTR90. p3-4) [facility]
== END 2024-08-18 15:01 | disposition home or self-care (01) | DRG 689 ==
LOC: ED 15:10 → INTOOBSV 19:39 → 2N 19:39 → SUATTDRO 19:39 → 2N 21:04